=== PATIENT | female | born 1945 | race Caucasian/White ===

== ENCOUNTER 2019-11-20 14:46 | Emergency (ER) | payer OTHER ==
[~2019-11-20] VITALS: Ht 152.4 cm; Wt 54.5 kg
[2019-11-20] MEDS ORDERED: SODIUM CHLORIDE 0.9% 500 ML IV ONE (15:27)
[2019-11-20 16:15] LABS: CLARITY URINE CLOUDY (CLEAR); COLOR URINE DARK YELLOW (YELLOW); KETONES URINE TRACE (NEGATIVE); LEUKOCYTE ESTERASE URINE NEGATIVE (NEGATIVE); NITRITE URINE NEGATIVE (NEGATIVE); OCCULT BLOOD URINE NEGATIVE (NEGATIVE); PH URINE 5.5 (4.5-8.0); PROTEIN URINE 1+ (NEGATIVE); SPECIFIC GRAVITY URINE 1.028 (1.005-1.030)
[2019-11-20 16:17] LABS: BASOPHILS % 0.1 % (0.0-2.0); HEMATOCRIT. 50.6 % (36.0-48.0); LYMPHOCYTES % 9.2 % (20.0-50.0); MEAN CORPUSCULAR VOLUME 85.6 fL (81.0-99.0); MEAN PLATELET VOLUME 8.4 fl (7.4-10.4); MONOCYTES % 9.5 % (2.0-8.0); NEUTROPHILS % 81.2 % (40.0-76.0); PLATELET 183 x1000/uL (130-400); RED BLOOD CELL COUNT 5.91 mill/uL (4.2-5.4); RED CELL DISTRIBUTION WIDTH 13.9 % (11.6-14.6)
[2019-11-20 16:23] LABS: CHLORIDE 104 mEq/L (98-107)
[2019-11-20 19:31] VITALS: BP 119/91
== END 2019-11-20 21:13 | disposition short-term general hospital (02) ==
LOC: ER 14:54 → CANBEDREQ 18:56 → ER 21:13
DX: R55 Syncope and collapse (principal); F03.90 Unspecified dementia, unspecified severity, without behavioral disturbance, psychotic disturbance, mood disturbance, and anxiety; Z85.9 Personal history of malignant neoplasm, unspecified; I10 Essential (primary) hypertension; H40.9 Unspecified glaucoma; Z88.0 Allergy status to penicillin
CPT/HCPCS: 36415; 70450; 71045; 80053; 81003; 82962; 84484; 85025; 93005; 99285; J7030

== ENCOUNTER 2019-12-15 12:45 | Inpatient (IN) | payer OTHER ==
[~2019-12-15] VITALS: Ht 160 cm; Wt 59.0 kg
[2019-12-15] MEDS ORDERED: NOREPINEPHRINE 8MG/250ML PMX 250 ML IV ONE ×2 (13:19→18:28)
[2019-12-15] MEDS ORDERED: NOREPINEPHRINE 8 MG in DEXT 5% WATER 242 ML IV STA (13:36)
[2019-12-15] MEDS ORDERED: VANCOMYCIN 1 G PREMIX 200 ML IV ONE (13:45)
[2019-12-15] MEDS ORDERED: LEVOFLOXACIN 750MG PREMIX 150 ML IV ONE (13:45)
[2019-12-15] MEDS ORDERED: SODIUM CHLORIDE 0.9% 1000ML BAG (SEPSIS BOLUS) IV ONE (13:45)
[2019-12-15 14:09] LABS: HEMATOCRIT. 38.5 % (36.0-48.0); HEMOGLOBIN. 11.9 g/dL (12.0-16.0); MEAN CORPUSCULAR HEMOGLOBIN 26.6 pg (28.0-32.0); MEAN CORPUSCULAR VOLUME 86.1 fL (81.0-99.0); MEAN PLATELET VOLUME 8.7 fl (7.4-10.4); PLATELET 142 x1000/uL (130-400); RED BLOOD CELL COUNT 4.47 mill/uL (4.2-5.4); RED CELL DISTRIBUTION WIDTH 15.7 % (11.6-14.6)
[2019-12-15 14:16] LABS: CHLORIDE 115 mEq/L (98-107)
[2019-12-15 14:19] LABS: INR 1.3; PARTIAL THROMBOPLASTIN TIME 26.9 sec (23.4-31.0); PROTHROMBIN TIME 13.8 sec (9.6-11.0)
[2019-12-15 14:31] LABS: PLATELET ESTIMATE NORMAL
[2019-12-15 14:40] LABS: CLARITY URINE CLEAR (CLEAR); COLOR URINE YELLOW (YELLOW); KETONES URINE NEGATIVE (NEGATIVE); LEUKOCYTE ESTERASE URINE TRACE (NEGATIVE); NITRITE URINE NEGATIVE (NEGATIVE); OCCULT BLOOD URINE 2+ (NEGATIVE); PH URINE 8.5 (4.5-8.0); PROTEIN URINE 2+ (NEGATIVE); SPECIFIC GRAVITY URINE 1.012 (1.005-1.030)
[2019-12-15 14:53] LABS: BG BASE EXCESS 1.8 mmol/L (-2.0-2.0); BG CARBOXYHEMOGLOBIN 0.3 % (0.5-1.5); BG DEOXYHEMOGLOBIN 0.3 % (0.0-5.0); BG FRACTION INSPIRED OXYGEN 100; BG HCO3 ACT 22.1 mmol/L (22.0-26.0); BG METHEMOGLOBIN 0.3 % (0.0-1.5); BG OXYGEN SATURATION 99.7 % (92.0-98.5); BG OXYHEMOGLOBIN 99.1 % (94.0-97.0); BG PCO2 24.1 mmHg (35.0-45.0); BG PO2 599.5 mmHg (75.0-100.0); BG SAMPLE SITE LEFT FEMORAL; BG TIDAL VOLUME(mL) 500 mL; BG TOTAL HEMOGLOBIN 13.7 g/dL (12.0-18.0); BG VENT MODE VENT - A/C; BG VENT RATE 14 set
[2019-12-15] MEDS ORDERED: PROPOFOL 10MG/ML 100ML 100 ML IV PRN (16:30)
[2019-12-15] MEDS ORDERED: PIPERACILLIN/TAZOBACTAM 3.375 G in DEXT 5% WATER 100 ML IV SCH (16:30)
[2019-12-15] MEDS ORDERED: NOREPINEPHRINE 8 MG in DEXT 5% WATER 242 ML IV PRN ×2 (16:30→17:30)
[2019-12-15] MEDS ORDERED: ENOXAPARIN 40MG/0.4ML SYR SUBCUT SCH (17:00)
[2019-12-15] MEDS ORDERED: POTASSIUM CHLORIDE 20MEQ TABLET SR PO SCH (17:30)
[2019-12-15] MEDS ORDERED: FUROSEMIDE 40MG/4ML VIAL IVP SCH (17:30)
[2019-12-15] MEDS: PANTOPRAZOLE SODIUM 40 MG/VIAL IV SCH (17:45)
[2019-12-15] MEDS ORDERED: ACETAMINOPHEN 325MG TABLET PO PRN (18:15)
[2019-12-15] MEDS ORDERED: ONDANSETRON HCL 4MG/2ML INJ IV PRN (18:15)
[2019-12-15] MEDS ORDERED: NOREPINEPHRINE 8MG/250ML PMX 250 ML IV PRN (18:30)
[2019-12-15] MEDS ORDERED: SODIUM CHLORIDE 0.9% 1,000 ML IV ONE (19:45)
[2019-12-15] MEDS ORDERED: AMIODARONE HCL 150 MG in DEXT 5% WATER 100 ML IV NR (20:15)
[2019-12-15] MEDS ORDERED: AMIODARONE HCL 900 MG in DEXT 5% WATER 500 ML IV PRN (20:30)
[2019-12-15] MEDS: VASOPRESSIN 20 UNITS in SODIUM CHLORIDE 0.9% 100 ML IV PRN (20:55)
[2019-12-15] MEDS: AZTREONAM 1G in DEXTROSE 5% WATER 50ML IV SCH (22:02)
[2019-12-16] MEDS: MIDAZOLAM HCL 100 MG in DEXT 5% WATER 100 ML IV PRN (00:04)
[2019-12-16] MEDS ORDERED: NOREPINEPHRINE 8 MG in DEXT 5% WATER 242 ML IV PRN (03:00)
[2019-12-16 05:07] LABS: BASOPHILS % 0.3 % (0.0-2.0); HEMATOCRIT. 39.5 % (36.0-48.0); HEMOGLOBIN. 12.3 g/dL (12.0-16.0); LYMPHOCYTES % 7.1 % (20.0-50.0); MEAN CORPUSCULAR HEMOGLOBIN 26.9 pg (28.0-32.0); MEAN CORPUSCULAR VOLUME 86.2 fL (81.0-99.0); MEAN PLATELET VOLUME 8.6 fl (7.4-10.4); MONOCYTES % 8.2 % (2.0-8.0); NEUTROPHILS % 84.4 % (40.0-76.0); PLATELET 112 x1000/uL (130-400); RED BLOOD CELL COUNT 4.59 mill/uL (4.2-5.4); RED CELL DISTRIBUTION WIDTH 15.3 % (11.6-14.6)
[2019-12-16 05:12] LABS: CHLORIDE 115 mEq/L (98-107)
[2019-12-16] MEDS ORDERED: NOREPINEPHRINE 8MG/250ML PMX 250 ML IV PRN (07:15)
[2019-12-16] MEDS: AZTREONAM 1G in DEXTROSE 5% WATER 50ML IV SCH ×3 (07:19→17:46)
[2019-12-16] MEDS: POTASSIUM CHLORIDE 20MEQ/PACKET NG SCH (08:59)
[2019-12-16] MEDS: VASOPRESSIN 20 UNITS in SODIUM CHLORIDE 0.9% 100 ML IV PRN (09:05)
[2019-12-16] MEDS: PANTOPRAZOLE SODIUM 40 MG/VIAL IV SCH (09:05)
[2019-12-16 09:30] LABS: BG BASE EXCESS 1.8 mmol/L (-2.0-2.0); BG CARBOXYHEMOGLOBIN 0.2 % (0.5-1.5); BG DEOXYHEMOGLOBIN 0.8 % (0.0-5.0); BG FRACTION INSPIRED OXYGEN 40; BG HCO3 ACT 23.9 mmol/L (22.0-26.0); BG METHEMOGLOBIN 0.2 % (0.0-1.5); BG OXYGEN SATURATION 99.2 % (92.0-98.5); BG OXYHEMOGLOBIN 98.8 % (94.0-97.0); BG PCO2 30.1 mmHg (35.0-45.0); BG PH 7.518 (7.350-7.450); BG PO2 198.4 mmHg (75.0-100.0); BG SAMPLE SITE RIGHT FEMORAL; BG TIDAL VOLUME(mL) 500 mL; BG TOTAL HEMOGLOBIN 13.3 g/dL (12.0-18.0); BG VENT MODE VENT - A/C; BG VENT RATE 12 set
[2019-12-16] MEDS ORDERED: POTASSIUM CHLORIDE 20MEQ TABLET SR PO SCH (11:00)
[2019-12-16] MEDS ORDERED: MAGNESIUM 1 G PREMIX 100 ML IV SCH (11:00)
[2019-12-16] MEDS: ASPIRIN 81MG TABLET PO SCH (12:42)
[2019-12-16] MEDS ORDERED: DEXTROSE 50% WATER 50ML SYRINGE IV PRN (13:15)
[2019-12-16] MEDS: VANCOMYCIN 750 MG PREMIX 150 ML IV SCH (14:57)
[2019-12-16] MEDS: DEXT 5%/0.45% NACL 1000ML 1,000 ML IV SCH (16:21)
[2019-12-16] MEDS: ENOXAPARIN 60MG/0.6ML SYR SUBCUT SCH (16:21)
[2019-12-16] MEDS: BLOOD SUGAR DIAGNOSTIC STRIP TEST SCH (16:53)
[2019-12-16] MEDS: INSULIN LISPRO 100 UNITS/ML SUBCUT SCH (17:19)
[2019-12-16] MEDS ORDERED: EPINEPHRINE 5 MG in SODIUM CHLORIDE 0.9% 245 ML IV STA (19:26)
[2019-12-16] MEDS ORDERED: SODIUM CHLORIDE 0.9% 1,000 ML IV ONE (19:26)
[2019-12-16] MEDS ORDERED: HYDROCORTISONE SOD SUCCINATE 100 MG/2 ML VIAL IV ONE (19:30)
[2019-12-16] MEDS ORDERED: IOHEXOL-350 100 ML BOTTLE ONE (20:58)
[2019-12-17] VITALS (63 sets, daily range): BP systolic 77–132; BP diastolic 51–102
[2019-12-17 00:40] LABS: CHLORIDE 122 mEq/L (98-107)
[2019-12-17] MEDS: ATORVASTATIN CALCIUM 10MG TABLET PO SCH ×2 (01:11→22:21)
[2019-12-17] MEDS ORDERED: KCL 20MEQ/100ML PREMIX 100 ML IV ONE (01:30)
[2019-12-17] MEDS: VANCOMYCIN 750 MG PREMIX 150 ML IV SCH ×2 (03:00→15:09)
[2019-12-17 05:49] LABS: BASOPHILS % 0.1 % (0.0-2.0); HEMATOCRIT. 37.8 % (36.0-48.0); LYMPHOCYTES % 8.4 % (20.0-50.0); MEAN CORPUSCULAR VOLUME 84.9 fL (81.0-99.0); MEAN PLATELET VOLUME 8.9 fl (7.4-10.4); MONOCYTES % 8.7 % (2.0-8.0); NEUTROPHILS % 82.8 % (40.0-76.0); PLATELET 96 x1000/uL (130-400); RED BLOOD CELL COUNT 4.45 mill/uL (4.2-5.4); RED CELL DISTRIBUTION WIDTH 15.8 % (11.6-14.6)
[2019-12-17 05:55] LABS: CHLORIDE 119 mEq/L (98-107)
[2019-12-17] MEDS: ENOXAPARIN 60MG/0.6ML SYR SUBCUT SCH ×2 (06:41→13:10)
[2019-12-17] MEDS: INSULIN LISPRO 100 UNITS/ML SUBCUT SCH ×3 (06:51→17:26)
[2019-12-17] MEDS: BLOOD SUGAR DIAGNOSTIC STRIP TEST SCH ×3 (06:51→17:25)
[2019-12-17 08:22] LABS: BG BASE EXCESS -4.1 mmol/L (-2.0-2.0); BG CARBOXYHEMOGLOBIN 0.3 % (0.5-1.5); BG FRACTION INSPIRED OXYGEN 40; BG HCO3 ACT 18.9 mmol/L (22.0-26.0); BG METHEMOGLOBIN 0.5 % (0.0-1.5); BG OXYHEMOGLOBIN 98.2 % (94.0-97.0); BG PCO2 28.9 mmHg (35.0-45.0); BG PH 7.433 (7.350-7.450); BG PO2 188.1 mmHg (75.0-100.0); BG SAMPLE SITE RIGHT FEMORAL; BG TIDAL VOLUME(mL) 500 mL; BG TOTAL HEMOGLOBIN 13.2 g/dL (12.0-18.0); BG VENT MODE VENT - A/C; BG VENT RATE 12 set
[2019-12-17] MEDS: PANTOPRAZOLE SODIUM 40 MG/VIAL IV SCH (08:57)
[2019-12-17] MEDS: POTASSIUM CHLORIDE 20MEQ/PACKET NG SCH (08:57)
[2019-12-17] MEDS: ASPIRIN 81MG TABLET PO SCH (08:57)
[2019-12-17] MEDS: DEXT 5%/0.45% NACL 1000ML 1,000 ML IV SCH (08:57)
[2019-12-17] MEDS ORDERED: HEPARIN 25,000 UNITS PREMIX 250 ML IV SCH (10:30)
[2019-12-17] MEDS: AZTREONAM 1G in DEXTROSE 5% WATER 50ML IV SCH ×2 (10:30→17:38)
[2019-12-17] MEDS ORDERED: POTASSIUM CHLORIDE 20MEQ/PACKET NG NR (11:30)
[2019-12-17] MEDS ORDERED: MIRT15TA6 PO (11:54)
[2019-12-17] MEDS ORDERED: LETR2.5T7 PO (11:54)
[2019-12-17] MEDS ORDERED: LISI10TA5 PO (11:54)
[2019-12-17] MEDS ORDERED: MAGNESIUM 2 G PREMIX 50 ML IV NR (13:00)
[2019-12-17] MEDS: NOREPINEPHRINE 8 MG in DEXTROSE 5% WATER 250 ML IV PRN ×2 (13:15→22:27)
[2019-12-17] MEDS ORDERED: IPRATROPIUM/ALBUTEROL 0.5-3(2.5)MG/3ML NEB HHN PRN (13:45)
[2019-12-17] MEDS ORDERED: FENTANYL CITRATE/PF 1,000 MCG in SODIUM CHLORIDE 0.9% 80 ML IV PRN (13:45)
[2019-12-17] MEDS: MIDAZOLAM HCL 100 MG in DEXT 5% WATER 100 ML IV PRN (17:27)
[2019-12-17] MEDS: IPRATROPIUM/ALBUTEROL 0.5-3(2.5)MG/3ML NEB HHN SCH (20:15)
[2019-12-18] VITALS (96 sets, daily range): BP systolic 58–159; BP diastolic 20–107
[2019-12-18] MEDS: ENOXAPARIN 60MG/0.6ML SYR SUBCUT SCH (01:42)
[2019-12-18] MEDS: DEXT 5%/0.45% NACL 1000ML 1,000 ML IV SCH (01:43)
[2019-12-18] MEDS: IPRATROPIUM/ALBUTEROL 0.5-3(2.5)MG/3ML NEB HHN SCH ×2 (02:20→08:03)
[2019-12-18] MEDS: AZTREONAM 1G in DEXTROSE 5% WATER 50ML IV SCH ×3 (02:48→18:01)
[2019-12-18] MEDS: VANCOMYCIN 750 MG PREMIX 150 ML IV SCH ×2 (03:05→15:06)
[2019-12-18] MEDS: BLOOD SUGAR DIAGNOSTIC STRIP TEST SCH ×4 (06:12→18:00)
[2019-12-18] MEDS: INSULIN LISPRO 100 UNITS/ML SUBCUT SCH ×4 (06:15→18:00)
[2019-12-18 07:11] LABS: HEMATOCRIT. 37.4 % (36.0-48.0); HEMOGLOBIN. 11.8 g/dL (12.0-16.0); MEAN CORPUSCULAR HEMOGLOBIN 26.9 pg (28.0-32.0); MEAN CORPUSCULAR VOLUME 85.4 fL (81.0-99.0); MEAN PLATELET VOLUME 10.1 fl (7.4-10.4); PLATELET 114 x1000/uL (130-400); RED BLOOD CELL COUNT 4.38 mill/uL (4.2-5.4); RED CELL DISTRIBUTION WIDTH 16.4 % (11.6-14.6)
[2019-12-18 07:13] LABS: CHLORIDE 117 mEq/L (98-107)
[2019-12-18] MEDS ORDERED: POTASSIUM CHLORIDE 20MEQ TABLET SR PO NR (09:00)
[2019-12-18] MEDS: PANTOPRAZOLE SODIUM 40 MG/VIAL IV SCH (09:04)
[2019-12-18] MEDS: FOLIC ACID 1MG TABLET PO SCH (09:05)
[2019-12-18] MEDS: ASPIRIN 81MG TABLET PO SCH (09:05)
[2019-12-18] MEDS: POTASSIUM CHLORIDE 20MEQ/PACKET NG SCH (09:05)
[2019-12-18] MEDS ORDERED: FUROSEMIDE 40MG/4ML VIAL IVP SCH ×2 (09:30→10:30)
[2019-12-18 09:36] LABS: BG CARBOXYHEMOGLOBIN 0.1 % (0.5-1.5); BG DEOXYHEMOGLOBIN 0.7 % (0.0-5.0); BG FRACTION INSPIRED OXYGEN 40; BG HCO3 ACT 18.7 mmol/L (22.0-26.0); BG METHEMOGLOBIN 0.3 % (0.0-1.5); BG OXYGEN SATURATION 99.3 % (92.0-98.5); BG OXYHEMOGLOBIN 98.9 % (94.0-97.0); BG PCO2 30.6 mmHg (35.0-45.0); BG PH 7.403 (7.350-7.450); BG PO2 183.4 mmHg (75.0-100.0); BG SAMPLE SITE RIGHT BRACHIAL; BG TIDAL VOLUME(mL) 500 mL; BG TOTAL HEMOGLOBIN 12.8 g/dL (12.0-18.0); BG VENT MODE VENT - A/C; BG VENT RATE 12 set
[2019-12-18] MEDS: NOREPINEPHRINE 8 MG in DEXTROSE 5% WATER 250 ML IV PRN (09:41)
[2019-12-18 10:47] LABS: PLATELET ESTIMATE DECREASED
[2019-12-18] MEDS ORDERED: LIDOCAINE HCL 1% 20ML VIAL (Pyxis) INJ ONE (14:34)
[2019-12-18] MEDS: VASOPRESSIN 20 UNITS in SODIUM CHLORIDE 0.9% 100 ML IV PRN (15:44)
[2019-12-18] MEDS: IPRATROPIUM BROMIDE (0.02%) 0.5MG/2.5ML NEB HHN SCH ×2 (15:58→21:15)
[2019-12-18] MEDS: ATORVASTATIN CALCIUM 10MG TABLET PO SCH (21:00)
[2019-12-18] MEDS: NOREPINEPHRINE 8 MG in DEXT 5% WATER 242 ML IV PRN (23:46)
[2019-12-19] VITALS (101 sets, daily range): BP systolic 54–161; BP diastolic 21–129
[2019-12-19] MEDS: IPRATROPIUM BROMIDE (0.02%) 0.5MG/2.5ML NEB HHN SCH ×4 (00:05→21:10)
[2019-12-19] MEDS: ENOXAPARIN 60MG/0.6ML SYR SUBCUT SCH ×2 (01:00→15:13)
[2019-12-19] MEDS: AZTREONAM 1G in DEXTROSE 5% WATER 50ML IV SCH ×3 (03:28→18:48)
[2019-12-19] MEDS: VANCOMYCIN 750 MG PREMIX 150 ML IV SCH ×2 (03:36→15:58)
[2019-12-19 05:30] LABS: HEMATOCRIT. 38.5 % (36.0-48.0); HEMOGLOBIN. 12.2 g/dL (12.0-16.0); MEAN CORPUSCULAR HEMOGLOBIN 26.9 pg (28.0-32.0); MEAN CORPUSCULAR VOLUME 84.5 fL (81.0-99.0); MEAN PLATELET VOLUME 10.4 fl (7.4-10.4); PLATELET 125 x1000/uL (130-400); RED BLOOD CELL COUNT 4.55 mill/uL (4.2-5.4); RED CELL DISTRIBUTION WIDTH 16.1 % (11.6-14.6)
[2019-12-19 05:45] LABS: CHLORIDE 112 mEq/L (98-107)
[2019-12-19] MEDS: INSULIN LISPRO 100 UNITS/ML SUBCUT SCH ×4 (06:00→18:00)
[2019-12-19] MEDS: BLOOD SUGAR DIAGNOSTIC STRIP TEST SCH ×4 (06:22→18:00)
[2019-12-19] MEDS ORDERED: FUROSEMIDE 40MG/4ML VIAL IVP SCH (09:00)
[2019-12-19 09:21] LABS: BG BASE EXCESS -4.7 mmol/L (-2.0-2.0); BG CARBOXYHEMOGLOBIN 0.1 % (0.5-1.5); BG DEOXYHEMOGLOBIN 1.5 % (0.0-5.0); BG FRACTION INSPIRED OXYGEN 30; BG HCO3 ACT 19.4 mmol/L (22.0-26.0); BG METHEMOGLOBIN 0.1 % (0.0-1.5); BG OXYGEN SATURATION 98.5 % (92.0-98.5); BG OXYHEMOGLOBIN 98.3 % (94.0-97.0); BG PCO2 32.9 mmHg (35.0-45.0); BG PH 7.388 (7.350-7.450); BG PO2 127.5 mmHg (75.0-100.0); BG SAMPLE SITE RIGHT RADIAL; BG TIDAL VOLUME(mL) 500 mL; BG TOTAL HEMOGLOBIN 12.6 g/dL (12.0-18.0); BG VENT MODE VENT - A/C; BG VENT RATE 12 set
[2019-12-19] MEDS: NOREPINEPHRINE 8 MG in DEXT 5% WATER 242 ML IV PRN ×4 (10:53→21:49)
[2019-12-19] MEDS: FOLIC ACID 1MG TABLET PO SCH (10:56)
[2019-12-19] MEDS: PANTOPRAZOLE SODIUM 40 MG/VIAL IV SCH (10:56)
[2019-12-19] MEDS: ASPIRIN 81MG TABLET PO SCH (10:57)
[2019-12-19] MEDS: POTASSIUM CHLORIDE 20MEQ/PACKET NG SCH (10:57)
[2019-12-19] MEDS ORDERED: PHENYLEPHRINE 50 MG in DEXT 5% WATER 245 ML IV PRN (11:30)
[2019-12-19] MEDS ORDERED: DILTIAZEM HCL 125 MG in DEXT 5% WATER 100 ML IV PRN (12:15)
[2019-12-19 14:12] LABS: PLATELET ESTIMATE SLIGHTL
[2019-12-19] MEDS: VASOPRESSIN 20 UNITS in SODIUM CHLORIDE 0.9% 100 ML IV PRN (15:48)
[2019-12-19] MEDS ORDERED: DIGOXIN 500MCG/2ML AMP IV NR (16:30)
[2019-12-19] MEDS ORDERED: DOPAMINE 800MG PREMIX (DOUBLE) 250 ML IV PRN (16:45)
[2019-12-19] MEDS: PHENYLEPHRINE 100 MG in DEXT 5% WATER 240 ML IV PRN ×2 (17:20→21:50)
[2019-12-19] MEDS: ATORVASTATIN CALCIUM 10MG TABLET PO SCH (21:31)
[2019-12-20] VITALS (43 sets, daily range): BP systolic 53–188; BP diastolic 24–104
[2019-12-20] MEDS: BLOOD SUGAR DIAGNOSTIC STRIP TEST SCH ×3 (00:14→12:00)
[2019-12-20] MEDS: ENOXAPARIN 60MG/0.6ML SYR SUBCUT SCH ×2 (00:58→12:50)
[2019-12-20] MEDS: IPRATROPIUM BROMIDE (0.02%) 0.5MG/2.5ML NEB HHN SCH ×3 (01:05→14:12)
[2019-12-20] MEDS: PHENYLEPHRINE 100 MG in DEXT 5% WATER 240 ML IV PRN ×2 (01:24→12:51)
[2019-12-20] MEDS: AZTREONAM 1G in DEXTROSE 5% WATER 50ML IV SCH ×2 (04:25→09:57)
[2019-12-20] MEDS: VANCOMYCIN 750 MG PREMIX 150 ML IV SCH (04:26)
[2019-12-20] MEDS ORDERED: NOREPINEPHRINE 8 MG in DEXT 5% WATER 242 ML IV SCH (04:30)
[2019-12-20] MEDS: NOREPINEPHRINE 8 MG in DEXT 5% WATER 242 ML IV PRN ×2 (05:32→07:53)
[2019-12-20] MEDS: INSULIN LISPRO 100 UNITS/ML SUBCUT SCH ×3 (06:42→12:00)
[2019-12-20 07:48] LABS: HEMATOCRIT. 38.9 % (36.0-48.0); HEMOGLOBIN. 12.4 g/dL (12.0-16.0); MEAN CORPUSCULAR HEMOGLOBIN 27.3 pg (28.0-32.0); MEAN CORPUSCULAR VOLUME 85.6 fL (81.0-99.0); PLATELET 149 x1000/uL (130-400); RED BLOOD CELL COUNT 4.54 mill/uL (4.2-5.4); RED CELL DISTRIBUTION WIDTH 16.6 % (11.6-14.6)
[2019-12-20 07:49] LABS: CHLORIDE 104 mEq/L (98-107)
[2019-12-20] MEDS: POTASSIUM CHLORIDE 20MEQ/PACKET NG SCH (09:00)
[2019-12-20 09:16] LABS: NUCLEATED RED BLOOD CELLS 1 /100 WBC; PLATELET ESTIMATE NORMAL
[2019-12-20] MEDS ORDERED: NOREPINEPHRINE 16 MG in DEXT 5% WATER 242 ML IV PRN (09:16)
[2019-12-20 09:24] LABS: BG BASE EXCESS -8.8 mmol/L (-2.0-2.0); BG CARBOXYHEMOGLOBIN 0.5 % (0.5-1.5); BG DEOXYHEMOGLOBIN 1.3 % (0.0-5.0); BG FRACTION INSPIRED OXYGEN 30; BG HCO3 ACT 15.4 mmol/L (22.0-26.0); BG METHEMOGLOBIN 0.2 % (0.0-1.5); BG OXYGEN SATURATION 98.7 % (92.0-98.5); BG PCO2 28.7 mmHg (35.0-45.0); BG PH 7.347 (7.350-7.450); BG PO2 123.8 mmHg (75.0-100.0); BG SAMPLE SITE RIGHT BRACHIAL; BG TIDAL VOLUME(mL) 500 mL; BG TOTAL HEMOGLOBIN 13.9 g/dL (12.0-18.0); BG VENT MODE VENT - A/C; BG VENT RATE 12 set
[2019-12-20] MEDS: FOLIC ACID 1MG TABLET PO SCH (09:57)
[2019-12-20] MEDS: PANTOPRAZOLE SODIUM 40 MG/VIAL IV SCH (09:57)
[2019-12-20] MEDS: ASPIRIN 81MG TABLET PO SCH (09:57)
[2019-12-20] MEDS ORDERED: NOREPINEPHRINE 32 MG in DEXT 5% WATER 218 ML IV PRN ×2 (10:00→16:15)
[2019-12-20] MEDS ORDERED: MORPHINE SULFATE 2 MG/ML CPJ (NOT FOR IM USE) IV PRN (15:00)
[2019-12-20] MEDS ORDERED: LORAZEPAM 2MG/ML CPJ IV PRN (15:00)
[2019-12-20] MEDS ORDERED: PHENYLEPHRINE 100 MG in DEXT 5% WATER 240 ML IV PRN (16:15)
[2019-12-20] MEDS ORDERED: DEXTROSE 50% WATER 50ML SYRINGE IV PRN (16:15)
[2019-12-20] MEDS ORDERED: FENTANYL CITRATE/PF 1,000 MCG in SODIUM CHLORIDE 0.9% 80 ML IV PRN (16:15)
[2019-12-20] MEDS ORDERED: AZTREONAM 1 G in DEXTROSE 5% WATER 50 ML IV SCH (18:00)
[2019-12-20] MEDS ORDERED: INSULIN LISPRO 100 UNITS/ML SUBCUT SCH (18:00)
[2019-12-20] MEDS ORDERED: VANCOMYCIN 750 MG PREMIX 150 ML IV SCH (18:00)
[2019-12-20] MEDS ORDERED: BLOOD SUGAR DIAGNOSTIC STRIP TEST SCH (18:00)
[2019-12-20] MEDS ORDERED: ENOXAPARIN 60MG/0.6ML SYR SUBCUT SCH (21:00)
[2019-12-20] MEDS ORDERED: ATORVASTATIN CALCIUM 10MG TABLET PO SCH (21:00)
[2019-12-21] MEDS ORDERED: PANTOPRAZOLE SODIUM 40 MG/VIAL IV SCH (09:00)
== END 2019-12-20 20:00 | disposition expired | DRG 870 ==
LOC: ER 12:45 → EDBEDREQ 13:50 → MICUSO 16:15 → EDBEDREQTM 16:26 → EDBEDREQ 16:26 → CVICU 12-17 07:22
PROVIDERS: ADMIT Internal Medicine; ATTEND Internal Medicine
PROC: 5A1955Z Respiratory Ventilation, Greater than 96 Consecutive Hours (ICD-10-PCS; principal; 2019-12-15)
PROC: 5A2204Z Restoration of Cardiac Rhythm, Single (ICD-10-PCS; 2019-12-15)
PROC: 0BH17EZ Insertion of Endotracheal Airway into Trachea, Via Natural or Artificial Opening (ICD-10-PCS; 2019-12-15)
PROC: 02HV33Z Insertion of Infusion Device into Superior Vena Cava, Percutaneous Approach (ICD-10-PCS; 2019-12-18)
PROC: B548ZZA Ultrasonography of Superior Vena Cava, Guidance (ICD-10-PCS; 2019-12-18)
DX: A41.9 Sepsis, unspecified organism (principal); E43 Unspecified severe protein-calorie malnutrition; G92 Toxic encephalopathy; I21.4 Non-ST elevation (NSTEMI) myocardial infarction; I26.99 Other pulmonary embolism without acute cor pulmonale; J96.01 Acute respiratory failure with hypoxia; R65.21 Severe sepsis with septic shock; I50.23 Acute on chronic systolic (congestive) heart failure; J69.0 Pneumonitis due to inhalation of food and vomit; D68.59 Other primary thrombophilia; E87.0 Hyperosmolality and hypernatremia; E87.4 Mixed disorder of acid-base balance; I42.9 Cardiomyopathy, unspecified; J44.0 Chronic obstructive pulmonary disease with (acute) lower respiratory infection; K81.0 Acute cholecystitis; N39.0 Urinary tract infection, site not specified; I82.411 Acute embolism and thrombosis of right femoral vein; I82.431 Acute embolism and thrombosis of right popliteal vein; C34.90 Malignant neoplasm of unspecified part of unspecified bronchus or lung; T82.868A Thrombosis due to vascular prosthetic devices, implants and grafts, initial encounter; E87.2 Acidosis; Z66 Do not resuscitate; I27.21 Secondary pulmonary arterial hypertension; N19 Unspecified kidney failure; Z20.828 Contact with and (suspected) exposure to other viral communicable diseases; E11.65 Type 2 diabetes mellitus with hyperglycemia; E86.0 Dehydration; E78.5 Hyperlipidemia, unspecified; D69.6 Thrombocytopenia, unspecified; L89.156 Pressure-induced deep tissue damage of sacral region; Y83.8 Other surgical procedures as the cause of abnormal reaction of the patient, or of later complication, without mention of misadventure at the time of the procedure; E87.6 Hypokalemia; E83.42 Hypomagnesemia; I48.91 Unspecified atrial fibrillation; D72.810 Lymphocytopenia; E87.8 Other disorders of electrolyte and fluid balance, not elsewhere classified; F03.90 Unspecified dementia, unspecified severity, without behavioral disturbance, psychotic disturbance, mood disturbance, and anxiety; I11.0 Hypertensive heart disease with heart failure; I25.10 Atherosclerotic heart disease of native coronary artery without angina pectoris; I25.2 Old myocardial infarction; Z78.1 Physical restraint status; Z88.0 Allergy status to penicillin; Y92.89 Other specified places as the place of occurrence of the external cause; Z68.23 Body mass index [BMI] 23.0-23.9, adult
CPT/HCPCS: 31500; 36415; 36556; 36600; 70551; 71045; 71275; 74176; 76700; 76937; 78227; 80053; 80061; 80076; 80202; 81003; 82248; 82375; 82805; 82962; 83036; 83605; 83735; 83880; 84134; 84145; 84478; 84484; 85025; 87070; 87635; 93005; 93306; 93970; 94002; 94003; 94640; 99291; A9537; C1725; C9113; J0282; J1160; J1650; J1720; J1815; J1940; J1956; J2250; J2370; J2704; J3010; J3370; J3475; J3480; J3490; J7030; J7050; J7060; Q9967